=== PATIENT | female | born 1980 | race Caucasian/White ===

== ENCOUNTER 2016-08-28 11:15 | Emergency (ER) | payer BC, MEDICAID ==
[2016-08-28 11:21] VITALS: BP 166/98
[2016-08-28] MEDS ORDERED: Acetaminop/Codeine 30 MG TAB* 1 TAB (300 MG/30 MG) PO ONE (11:55)
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
== END 2016-08-28 12:35 | disposition home or self-care (01) ==
LOC: ED 11:15
DX: K04.7 Periapical abscess without sinus (principal); F17.210 Nicotine dependence, cigarettes, uncomplicated
CPT/HCPCS: 99282; A9270-GY

== ENCOUNTER 2016-09-22 09:55 | Emergency (ER) | payer BC, MEDICAID ==
[2016-09-22] MEDS ORDERED: Amoxicillin PO (*) 500 MG CAP PO ONE (10:55)
[2016-09-22] MEDS ORDERED: HYDROcodone/ACETAMIN 5-325 MG* 1 TAB PO ONE (10:55)
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
[2016-09-22 11:46] VITALS: BP 142/90
--- NOTE | 2016-09-22 12:00 | RAD ---
Indication: Facial pain, right facial contusion. CT of the facial bones was obtained in the axial plane. Sagittal and coronal reconstructed images were obtained. Mastoid air cells and paranasal sinuses are unremarkable with no evidence of abnormal fluid. The skull base is otherwise unremarkable. No fracture is identified. The mandible is intact. No evidence of fracture is noted. Mandibular condyles and coronoid processes are unremarkable. The visualized cervical spine demonstrates no fracture. The maxilla including the pterygoid plates are intact with no fracture. Zygomatic arch demonstrates no fracture. The orbits are intact. Multiple dental caries are noted. Soft tissue swelling is noted over the right maxillary sinus and right maxilla. No drainable fluid collections are noted. The nasal bone and nasal arch are otherwise unremarkable. IMPRESSION: No fracture is identified. There is soft tissue swelling over the right maxilla just adjacent to the area of missing teeth. No drainable collections are noted. A small hematoma cannot be excluded.
== END 2016-09-22 12:18 | disposition home or self-care (01) ==
LOC: UCEAST 09:55
DX: K04.7 Periapical abscess without sinus (principal); K02.9 Dental caries, unspecified; S00.83XA Contusion of other part of head, initial encounter; V49.9XXA Car occupant (driver) (passenger) injured in unspecified traffic accident, initial encounter; Y93.9 Activity, unspecified; Y92.9 Unspecified place or not applicable; Z88.1 Allergy status to other antibiotic agents; F12.90 Cannabis use, unspecified, uncomplicated; F17.210 Nicotine dependence, cigarettes, uncomplicated
CPT/HCPCS: 70486; 99212; A9270-GY; G0463

== ENCOUNTER 2016-10-08 08:57 | Emergency (ER) | payer BC, MEDICAID ==
[2016-10-08] MEDS ORDERED: NS 0.9% 1000 ML* 1,000 ML IV ONE (09:31)
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
[2016-10-08] MEDS ORDERED: Morphine INJ* 2 MG/ML 1 ML CARPUJECT IV ONE (10:02)
[2016-10-08] MEDS ORDERED: Ondansetron INJ* 2 MG/ML VIAL IV ONE (10:02)
[2016-10-08 10:05] LABS: Hematocrit 39 % (35-47); Mean Corpuscular HGB Conc 34 g/dl (31-36); Mean Corpuscular Hemoglobin 31 pg (27-31); Mean Corpuscular Volume 92 fL (80-97); Mean Platelet Volume 8 um3 (7.4-10.4); Red Blood Count 4.23 10^6/ul (4.0-5.4); Red Cell Distribution Width 14 % (10.5-15); White Blood Count 5.7 10^3/ul (3.5-10.8)
[2016-10-08 10:35] LABS: ALT 26 U/L (7-52); AST 26 U/L (13-39); Albumin 4.4 g/dL (3.2-5.2); Alkaline Phosphatase 59 U/L (34-104); Anion Gap 6 mmol/L (2-11); BUN/Creatinine Ratio 16.7 (8-20); Blood Urea Nitrogen 13 mg/dL (6-24); C Reactive Protein < 1.00 mg/L (< 5.00); CO2 Carbon Dioxide 24 mmol/L (22-32); Calcium 9.3 mg/dL (8.6-10.3); Chloride 105 mmol/L (101-111); EGFR African American 106.9 (>60); EGFR Non-African American 83.1 (>60); Globulin 3.5 g/dL (2-4); Glucose 99 mg/dL (70-100); Lipase 28 U/L (11.0-82.0); Potassium 4.1 mmol/L (3.5-5.0); Sodium 135 mmol/L (133-145); Total Protein 7.9 g/dL (6.4-8.9)
--- NOTE | 2016-10-08 11:29 | RAD ---
HISTORY: Pain, bleeding, left lower quadrant and umbilical pain COMPARISONS: None TECHNIQUE: Multiple transverse and longitudinal ultrasound images were obtained of the pelvis using grayscale, color Doppler, and spectral Doppler imaging using the endovaginal transducer. FINDINGS: UTERUS: The uterus measures 7.5 x 3.6 x 5.2 cm. The uterus is normal in shape, size, contour, and echotexture. Cervical nabothian cysts are noted. ENDOMETRIUM: The endometrial stripe is smooth. The endometrium measures 0.5 cm in thickness. CUL-DE-SAC: There is no free fluid within the cul-de-sac. RIGHT OVARY: The right ovary measures 3.4 x 1.5 x 2 cm. Multiple follicles are noted. Normal arterial and venous waveforms are identifiable within the ovary on spectral Doppler imaging. LEFT OVARY: The left ovary measures 2.4 x 0.9 x 2 cm. Multiple follicles are noted. Normal arterial and venous waveforms are identifiable within the ovary on spectral Doppler imaging. BLADDER: The bladder is not well visualized. IMPRESSION: UNREMARKABLE ULTRASOUND OF THE PELVIS. NO SONOGRAPHIC FEATURES OF TORSION. PLEASE NOTE THAT PARTIAL OR INTERMITTENT TORSION MAY BE SONOGRAPHICALLY NORMAL.
[2016-10-08 11:54] VITALS: BP 144/80
[2016-10-08 12:56] LABS: Urine Bacteria Absent (Absent); Urine Bilirubin Negative (Negative); Urine Glucose Negative (Negative); Urine Nitrite Negative (Negative)
== END 2016-10-08 13:20 | disposition home or self-care (01) ==
LOC: ED 08:57
DX: N93.9 Abnormal uterine and vaginal bleeding, unspecified (principal); R10.32 Left lower quadrant pain; F17.210 Nicotine dependence, cigarettes, uncomplicated
CPT/HCPCS: 36415; 76830; 80053; 81003; 81015; 83690; 84702; 85025; 86140; 87480; 87491; 87510; 87591; 87661; 96374; 96375; 99284; J2270; J2405

== ENCOUNTER 2017-01-05 23:11 | Emergency (ER) | payer MEDICAID ==
[2017-01-05 23:24] VITALS: BP 153/85
[2017-01-06] MEDS ORDERED: Ibuprofen TAB* 800 MG PO ONE (00:32)
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
== END 2017-01-06 01:25 ==
LOC: ED 23:11
DX: S61.411A Laceration without foreign body of right hand, initial encounter (principal); X58.XXXA Exposure to other specified factors, initial encounter; Y93.9 Activity, unspecified; Y92.9 Unspecified place or not applicable; F17.210 Nicotine dependence, cigarettes, uncomplicated
CPT/HCPCS: 12001; 99282